=== PATIENT | female | born 1995 | race Caucasian/White ===

== ENCOUNTER 2020-11-02 11:09 | Outpatient (CLI) | payer SELFPAY ==
--- NOTE | 2020-11-02 11:23 | MR_ITS ---
WS: [id number] MRI CERVICAL SPINE NONCONTRAST TECHNIQUE: Sagittal T1, T2 and STIR imaging. Axial T2, gradient, and fiesta imaging. CLINICAL INFORMATION: CERVICALGIA COMPARISON: None. FINDINGS: Straightening of the normal cervical lordosis. No high-grade central canal narrowing. Cord signal is normal. No visualized lesions within the cervical cord. C2-C3: Normal. C3-C4: Normal. C4-C5: Minimal disc bulging. Spinal canal and foramen are patent. C5-C6: No significant disc bulging. Mild facet arthropathy. Spinal canal foramen are patent. C6-C7: Minimal disc bulging. Spinal canal and foramen are patent. Normal facets. C7-T1: Normal. Visualized brain stem structures: Normal. Prevertebral soft tissues: Normal. MR/MR cervical spin wo con* [id number] IMPRESSION: 1. Straightening of the normal cervical lordosis. Cord signal is normal. No si gnificant central canal stenosis. 2. Minimal disc bulging C5-C6 and C6-C7. No significant spinal canal or forami nal narrowing. 3. Mild facet arthropathy C5-C6. 4. Normal prevertebral soft tissues. 5. No other significant findings.
== END 2020-11-02 11:10 | disposition home or self-care (01) ==
LOC: RADSHAW 11:11
PROVIDERS: PCP Nurse Practitioner Family; Visit Provider Nurse Practitioner Family
DX: M47.812 Spondylosis without myelopathy or radiculopathy, cervical region (principal); M50.222 Other cervical disc displacement at C5-C6 level
CPT/HCPCS: 72141

== ENCOUNTER 2021-05-04 09:49 | Outpatient (CLI) | payer SELFPAY ==
--- NOTE | 2021-05-04 10:30 | CT_ITS ---
WS: [id number] CT PARANASAL SINUSES HISTORY: CHRONIC RECURRENT SINUSITIS TECHNIQUE: Contiguous 2.5 mm axial images obtained through the sinuses. Images are reconstructed in s agittal and coronal planes. All CT scans at [facility] use at least one of these dose opt imization techniques: automated exposure control; mA and/or kV adjustment per patient size (includes targeted exams where dose is matched to clinical indication); or iterative reconstruction. DLP: 292.75 mGycm COMPARISON: None available. Frontal sinuses: Clear. Sphenoid sinus: Clear. Ethmoid sinuses: Clear. Maxillary sinus: Clear. Ostiomeatal unit: Patent. No significant mucoperiosteal thickening or obstruction. Nasal septum is straight. No spurring. CT/CT sinus wo con* [id number] IMPRESSION: Normal paranasal sinus CT.
== END 2021-05-04 09:50 | disposition home or self-care (01) ==
PROVIDERS: PCP Nurse Practitioner Family; Visit Provider Nurse Practitioner Family
DX: J32.9 Chronic sinusitis, unspecified (principal); J31.2 Chronic pharyngitis
CPT/HCPCS: 70486

== ENCOUNTER → 2021-05-10 14:19 | Outpatient (BNVA) | payer SELFPAY | PROVIDERS: PCP Nurse Practitioner Family; Visit Provider Family Medicine | DX: R53.83 Other fatigue (principal) | CPT/HCPCS: 80053; 82784; 82785; 83516; 84443; 85025; 85651; 86140; 86160; 86162; 86225; 86235; 86255; 86376 ==

== ENCOUNTER → 2021-05-11 17:52 | Outpatient (BNVA) | payer SELFPAY | PROVIDERS: PCP Nurse Practitioner Family; Visit Provider Family Medicine | DX: R53.83 Other fatigue (principal); D72.829 Elevated white blood cell count, unspecified; R76.8 Other specified abnormal immunological findings in serum; F41.9 Anxiety disorder, unspecified; F32.9 Major depressive disorder, single episode, unspecified; R06.02 Shortness of breath | CPT/HCPCS: 80500 ==

== ENCOUNTER → 2021-05-26 13:33 | Outpatient (BNVA) | payer SELFPAY | PROVIDERS: PCP Nurse Practitioner Family; Visit Provider Internal Medicine | DX: R76.8 Other specified abnormal immunological findings in serum (principal); R79.82 Elevated C-reactive protein (CRP); R53.83 Other fatigue; Z11.59 Encounter for screening for other viral diseases; M54.2 Cervicalgia; B99.9 Unspecified infectious disease; Z79.899 Other long term (current) drug therapy; Z87.891 Personal history of nicotine dependence | CPT/HCPCS: 36415; 99204 ==

== ENCOUNTER 2021-05-26 15:47 | Outpatient (CLI) | payer SELFPAY ==
--- NOTE | 2021-05-26 15:58 | XR_ITS ---
WS: [id number] XR hand RT 2V [id number] REASON FOR EXAM: R79.82 - Elevated C-reactive protein (CRP) FINDINGS: Joint spaces of the right hand are intact and well preserved. No bony abnormality is identified No soft tissue abnormality is noted. XR/XR hand RT 2V [id number] IMPRESSION: Normal right hand.
--- NOTE | 2021-05-26 15:58 | XR_ITS ---
WS: [id number] XR sacroiliac jts m 3V [id number] REASON FOR EXAM: L40.9 - Psoriasis, unspecified FINDINGS: Sacroiliac joints are well defined with sharp cortical margins. No bridging or fusion. No erosions. XR/XR sacroiliac jts m 3V [id number] IMPRESSION: Normal sacroiliac joints.
--- NOTE | 2021-05-26 15:58 | XR_ITS ---
WS: [id number] XR lumbar spine 2-3V* [id number] REASON FOR EXAM: R79.82 - Elevated C-reactive protein (CRP) FINDINGS: Mild scoliosis of the lumbar spine convex right. No lumbar vertebral body abnormality. Minimal narrowing of the L5-S1 disc space. Remaining disc interspaces are normal. Normal facet joints. XR/XR lumbar spine 2-3V* [id number] IMPRESSION: Mild scoliosis of the lumbar spine. Mild narrowing of the L5-S1 disc space.
--- NOTE | 2021-05-26 15:58 | XR_ITS ---
WS: [id number] XR thoracic spine 3V* [id number] REASON FOR EXAM: R79.82 - Elevated C-reactive protein (CRP) FINDINGS: Normal thoracic vertebrae. Normal thoracic intervertebral disc spaces. No soft tissue abnormality. XR/XR thoracic spine 3V* [id number] IMPRESSION: Normal thoracic spine.
--- NOTE | 2021-05-26 15:58 | XR_ITS ---
WS: [id number] XR hand LT 2V [id number] REASON FOR EXAM: R79.82 - Elevated C-reactive protein (CRP) FINDINGS: Joint spaces of the hand are intact and well preserved. No focal bony abnormality is identified. No soft tissue abnormality is identified. XR/XR hand LT 2V [id number] IMPRESSION: Normal left hand.
== END 2021-05-26 15:48 | disposition home or self-care (01) ==
LOC: RAD 15:51
PROVIDERS: PCP Nurse Practitioner Family; Visit Provider Internal Medicine
DX: R79.82 Elevated C-reactive protein (CRP) (principal); L40.9 Psoriasis, unspecified; Z11.59 Encounter for screening for other viral diseases
CPT/HCPCS: 72072; 72100; 72202; 73120; 80053; 81003; 82533; 82550; 82607; 82728; 82784; 83516; 83540; 83735; 84100; 85025; 86160; 86617; 86704; 86803; 86812; 87340

== ENCOUNTER → 2021-06-17 09:20 | Outpatient (BNVA) | payer SELFPAY | PROVIDERS: PCP Nurse Practitioner Family; Visit Provider Internal Medicine | DX: R76.8 Other specified abnormal immunological findings in serum (principal); F41.9 Anxiety disorder, unspecified; F32.9 Major depressive disorder, single episode, unspecified; R53.83 Other fatigue; R00.0 Tachycardia, unspecified; Z87.891 Personal history of nicotine dependence | CPT/HCPCS: 99214 ==

== ENCOUNTER → 2022-09-09 10:05 | Outpatient (BNVA) | payer SELFPAY | PROVIDERS: PCP Nurse Practitioner Family; Visit Provider Nurse Practitioner | DX: R69 Illness, unspecified (principal) | CPT/HCPCS: 87400; 87880 ==

== ENCOUNTER → 2023-02-15 11:48 | Outpatient (BNVA) | payer OTHER, SELFPAY | PROVIDERS: PCP Nurse Practitioner; Visit Provider Nurse Practitioner | DX: R53.83 Other fatigue (principal) | CPT/HCPCS: 83001; 84443; 85025 ==

== ENCOUNTER 2023-08-10 08:33 | Outpatient (CLI) | payer OTHER, MEDICAID, SELFPAY ==
--- NOTE | 2023-08-10 08:38 | XR_ITS ---
WS: [id number] Thoracic spine, 3 views, 08/10/2023 Clinical Data: S29.012A - Strain of muscle and tendon of back wall of th... Comparison: 3 views, 05/26/2021 Findings: No compression fractures are seen. The disc heights are normal. There is minimal anterior spurring of the T7-T9 vertebra. The paravertebral regions are normal. There is a slight levoscoliosis. Impression: Minimal levoscoliosis with minimal anterior osteoarthritic spurring T7-T9.
== END 2023-08-10 08:34 | disposition home or self-care (01) ==
LOC: RAD 08:33
PROVIDERS: PCP Nurse Practitioner; Visit Provider Nurse Practitioner Family
DX: S29.012A Strain of muscle and tendon of back wall of thorax, initial encounter (principal); X58.XXXA Exposure to other specified factors, initial encounter; M41.84 Other forms of scoliosis, thoracic region; M47.814 Spondylosis without myelopathy or radiculopathy, thoracic region
CPT/HCPCS: 72072

== ENCOUNTER → 2023-08-24 08:17 | Outpatient (BNVA) | payer OTHER, SELFPAY | PROVIDERS: PCP Nurse Practitioner; Visit Provider Nurse Practitioner Family | DX: R00.0 Tachycardia, unspecified (principal); R53.83 Other fatigue | CPT/HCPCS: 80053; 80061; 81000; 82306; 83036; 84443; 85025 ==

== ENCOUNTER 2023-10-19 06:00 | Outpatient (RCR) | payer OTHER, SELFPAY | END 2023-11-09 23:59 | disposition home or self-care (01) | LOC: WPT 06:00 | PROVIDERS: PCP Nurse Practitioner; Visit Provider Nurse Practitioner Family | DX: S29.012D Strain of muscle and tendon of back wall of thorax, subsequent encounter (principal); X58.XXXD Exposure to other specified factors, subsequent encounter | CPT/HCPCS: 97110; 97530 ==

== ENCOUNTER → 2024-11-07 09:52 | Outpatient (BNVA) | payer OTHER, SELFPAY | PROVIDERS: PCP Nurse Practitioner Family; Visit Provider Nurse Practitioner Family | DX: R50.9 Fever, unspecified (principal) | CPT/HCPCS: 87400 ==

== ENCOUNTER → 2025-03-27 14:54 | Outpatient (BNVA) | payer OTHER, SELFPAY | PROVIDERS: PCP Nurse Practitioner Family; Visit Provider Nurse Practitioner Family | DX: Z13.6 Encounter for screening for cardiovascular disorders (principal); R00.2 Palpitations; F41.9 Anxiety disorder, unspecified; F32.9 Major depressive disorder, single episode, unspecified; K08.89 Other specified disorders of teeth and supporting structures; Z79.899 Other long term (current) drug therapy; E53.8 Deficiency of other specified B group vitamins; D64.9 Anemia, unspecified | CPT/HCPCS: 80053; 80061; 81003; 82306; 82607; 82728; 83036; 83550; 84443; 85025 ==

== ENCOUNTER → 2025-04-01 10:15 | Outpatient (BNVA) | payer OTHER, SELFPAY | PROVIDERS: PCP Nurse Practitioner Family; Visit Provider Nurse Practitioner Family | DX: E87.6 Hypokalemia (principal) | CPT/HCPCS: 80053 ==

== ENCOUNTER → 2025-05-07 11:31 | Outpatient (BNVA) | payer OTHER, SELFPAY | PROVIDERS: PCP Nurse Practitioner Family; Visit Provider Nurse Practitioner Family | DX: J02.9 Acute pharyngitis, unspecified (principal) | CPT/HCPCS: 87070; 87880 ==

== ENCOUNTER → 2025-09-10 11:06 | Outpatient (BNVA) | payer OTHER, SELFPAY | PROVIDERS: PCP Nurse Practitioner Family; Visit Provider Nurse Practitioner Family | DX: R00.2 Palpitations (principal); E53.8 Deficiency of other specified B group vitamins | CPT/HCPCS: 80053; 82607; 82785; 84443; 85025; 86003 ==